=== PATIENT | female | born 1990 | race Caucasian/White ===

== ENCOUNTER 2019-07-28 19:28 | Outpatient (REF) | payer SELFPAY ==
[2019-07-28 19:55] LABS: Basophils % 0.3 %; Eosinophils # 0.1 10^3/uL (0.0-0.8); Eosinophils % 2.4 %; Hematocrit 35.8 % (37.0-47.0); Hemoglobin 10.7 g/dL (11.5-15.3); Lymphocytes % 50.4 %; Mean Corpuscular HGB Conc 29.9 g/dL (30.0-36.0); Mean Corpuscular Hemoglobin 25.7 pg (28.0-34.0); Mean Corpuscular Volume 86.1 fL (81-99); Mean Platelet Volume 14.2 fL (7.4-10.4); Monocytes # 0.5 10^3/uL (0.2-0.9); Monocytes % 7.9 %; Neutrophils # 2.3 10^3/uL (1.8-7.7); Neutrophils % 38.8 %; Nucleated Red Blood Cells % 0 %; Platelet Count 173 10^3/cmm (130-400); Red Blood Count 4.16 10^6/uL (4.1-5.3); Red Cell Distribution Width 15.8 % (12.1-15.1); White Blood Count 5.9 10^3/uL (4.0-10.0)
[2019-07-28 20:23] LABS: Alanine Aminotransferase 15 U/L (0-33); Albumin Level 4.6 g/dL (3.5-5.2); Alkaline Phosphatase 111 IU/L (35-105); Anion Gap 16.5 (5-19); Aspartate Amino Transferase 19 U/L (0-32); Blood Urea Nitrogen 12 mg/dL (6-20); Carbon Dioxide 25 mmol/L (22-29); Chloride 102 mmol/L (98-107); Free T4 Free Thyroxine 1.64 ng/dL (0.82-1.77); Globulin 2.9 g/dL (1.3-4.6); Glucose 71 mg/dL (74-109); Potassium 3.5 mmol/L (3.5-5.1); Sodium 140 mmol/L (136-145); Thyroid Stimulating Hormone 2.18 uIU/mL (0.27-4.20); Total Bilirubin 0.3 mg/dL (0.15-1.2); Total Protein 7.5 g/dL (6.6-8.7)
== END 2019-07-28 19:29 | disposition home or self-care (01) ==
LOC: LAB 19:28
PROVIDERS: Visit Provider Orthopaedic Surgery Foot and Ankle Surgery
DX: Z01.89 Encounter for other specified special examinations (principal)
CPT/HCPCS: 80053; 84439; 84443; 85025

== ENCOUNTER 2019-09-27 23:18 | Emergency (ER) | payer SELFPAY ==
[2019-09-27 23:20] VITALS: BP 122/103; PULSE 112; RESP 22; TEMP 36.9; O2SAT 100; BMI 33.4
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
[2019-09-27] MEDS: LORazepam 2 mg/mL INJ 1 mL IVP (23:41)
[2019-09-28 01:41] VITALS: BP 129/66; PULSE 102; RESP 16; O2SAT 96
== END 2019-09-28 01:43 | disposition home or self-care (01) ==
PROVIDERS: Emergency Provider Emergency Medicine
DX: G40.409 Other generalized epilepsy and epileptic syndromes, not intractable, without status epilepticus (principal); F17.200 Nicotine dependence, unspecified, uncomplicated
CPT/HCPCS: 12345; 96365; 96366; 96375; 99283; 99284; J1953; J2060

== ENCOUNTER 2019-11-29 10:39 | Emergency (ER) | payer SELFPAY ==
[2019-11-29 10:54] VITALS: BP 154/91; PULSE 108; RESP 16; TEMP 37; O2SAT 99; BMI 36.0
--- NOTE | 2019-11-29 11:17 | W.ED.GENADLT ---
HPI - General Adult General: Chief complaint: General Medical Stated complaint: SEIZURES/NEEDS REFERRAL/ MEDS CHANGE Time Seen by Provider: 11/29/19 10:59 Source: patient Mode of arrival: ambulatory History of Present Illness: HPI narrative: needing referral to neurology for existing seizure condition Review of Systems General: Reports: 10 or more systems reviewed and unremarkable except in HPI and below PFSH ED PFSH: Social History Smoking and tobacco status: current every day smoker Physical Exam Const: COMMON NORMALS: no apparent distress, oriented x3, no limitations and alert GENERAL APPEARANCE: cooperative and comfortable ORIENTATION/CONSCIOUSNESS: Yes awake, Yes oriented to person, Yes oriented to place and Yes oriented to time HENMT: COMMON NORMALS: normocephalic, head/scalp atraumatic, external ears normal, EAC's normal, TM's normal bilaterally and external nose normal HEAD & SCALP: normal to inspection, normocephalic and atraumatic FACE & SINUS: normal facial exam, sinuses nontender and face symmetric NOSE: external nose normal, nares normal and no nasal discharge EXTERNAL EAR: Yes external ears normal EXTERNAL AUDITORY CANAL: EAC's normal TYMPANIC MEMBRANE: TM's normal bilaterally MOUTH: oral and palatal mucosa normal, lip normal and tongue normal THROAT: posterior oropharynx normal, tonsils normal and uvula midline Eye: COMMON NORMALS: PERRL, EOMs intact bilaterally and conjunctivae normal GENERAL EYE: normal appearance of both eyes and normal light reflex EYELID: eyelids normal CONJUNCTIVA: Yes conjunctivae normal PUPIL: Yes PERRL EOM: Yes EOM abnormal DIRECT OPHTHALMOSCOPY: Yes normal light reflex Neck/C-Spine: COMMON NORMALS: full ROM, no lymphadenopathy, supple, no meningeal signs, no JVD and thyroid normal GENERAL: Yes normal visual inspection THYROID: thyroid normal CERVICAL SPINE: Yes cervical ROM normal and Yes normal cervical lordosis Lymph: LYMPHATIC: no lymphadenopathy noted Chest: COMMONS NORMALS: inspection of chest normal and palpation of chest normal Resp: COMMON NORMALS: normal respiratory effort, no retractions and clear to auscultation bilaterally AUSCULTATION: clear to auscultation bilaterally Cardio: COMMON NORMALS: no JVD, regular rate, regular rhythm, S1 normal heart sound, S2 normal heart sound, no gallops, no clicks, no murmurs, no rub and peripheral pulses 2+ throughout RATE: regular rate RHYTHM: regular rhythm HEART SOUNDS: S1 normal and S2 normal PERIPHERAL PULSES: pulses 2+ throughout GI: COMMON NORMALS: normal to inspection, nondistended, normoactive bowel sounds, soft to palpation, non-tender and no masses PALPATION: Yes soft : COMMON NORMALS: Yes no CVA tenderness and Yes external appearance normal BLADDER/KIDNEY EXAM: Yes no CVA tenderness Back/Pelvis: COMMON NORMALS: no CVA tenderness, thoracic and lumbar spine normal to inspection, no thoracic nor lumbar tenderness and thoraco-lumbar ROM normal Extremity: COMMON NORMALS: normal to inspection, full ROM, normal capillary refill, no joint enlargement, no clubbing, cyanosis or edema, no calf tenderness and no pedal edema GENERAL: Yes normal exam except as noted Neuro: COMMON NORMALS: oriented x3, moves all extremities, no focal motor deficits, no sensory deficits noted and gait normal SENSORIUM/ORIENTATION: Yes alert, Yes oriented to person, Yes oriented to place and Yes oriented to time MENINGEAL SIGNS: Yes no meningeal signs Psych: COMMON NORMALS: mental status grossly normal, thought process normal, cooperative, affect normal, speech normal and activity/motor behavior normal SPEECH: Yes normal speech THOUGHT PROCESS: normal thought process Skin: COMMON NORMALS: no rashes or lesions noted, no wounds and skin turgor normal GENERAL SKIN EXAM: no rashes or lesions noted and turgor normal Course ED course: Pt needs medications refilled for seizure disorder and referral to neurology. Will oblige and DC with consult set up per Associate Store Director. Vital Signs: Vital signs: Vital Signs Temperature 98.6 F 11/29/19 10:54 Pulse Rate 108 H 11/29/19 10:54 Respiratory Rate 16 11/29/19 10:54 Blood Pressure 154/91 11/29/19 10:54 Pulse Oximetry 99 11/29/19 10:54 Discharge Plan Discharge Patient Disposition: Home, Self-Care Clinical Impression: Seizure disorder Condition: Stable Prescriptions: New Keppra 500 mg tablet 500 mg PO BID Qty: 90 RF: 0 No Action Keppra 500 mg tablet 500 mg PO Q12H Qty: 60 RF: 0 Discharge Diet: Usual diet Discharge Activity: Resume usual activity Activity Restrictions/Additional Instructions: Follow up with neurology; script filled at [facility] Coding Level of Care Code ED Development Geologist for Chg Fwd Exam Comprehensive
[2019-11-29 11:38] VITALS: BP 155/87; PULSE 107; RESP 16; O2SAT 98
--- NOTE | 2019-11-30 14:51 | DCPLANNER ---
progressive care manager had message to schedule a follow up appointment for patient with Dr. Dill. progressive care manager called the office of , gave clinic patients information, was told that patients information would be printed and reviewed. Clinic will call patient with appointment information.
--- NOTE | 2019-12-02 09:42 | DCPLANNER ---
Patient has a follow up appointment scheduled for , December 08, 2019 at 10:15 with Joseph Cristobal. Clinic will call patient with appointment information.
--- NOTE | 2020-01-05 14:15 | DCPLANNER ---
Patient did not attend appointment scheduled for 12.08.[address] Dill.
== END 2019-11-29 12:11 | disposition home or self-care (01) ==
LOC: ER 11:51
PROVIDERS: Emergency Provider Nurse Practitioner Family
DX: G40.909 Epilepsy, unspecified, not intractable, without status epilepticus (principal); F17.210 Nicotine dependence, cigarettes, uncomplicated
CPT/HCPCS: 12345; 99281; 99282

== ENCOUNTER 2020-01-16 14:25 | Emergency (ER) | payer SELFPAY ==
[2020-01-16 14:28] VITALS: BP 153/93; PULSE 110; RESP 18; TEMP 36.7; O2SAT 99; BMI 34.9
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
== END 2020-01-16 16:41 | disposition home or self-care (01) ==
PROVIDERS: Emergency Provider Family Medicine
DX: S51.812A Laceration without foreign body of left forearm, initial encounter (principal); W25.XXXA Contact with sharp glass, initial encounter; G35 Multiple sclerosis; F17.210 Nicotine dependence, cigarettes, uncomplicated
CPT/HCPCS: 12002; 12345; 99281; 99282; J2001

== ENCOUNTER → 2020-04-13 15:28 | Outpatient (BNVA) | payer OTHER, SELFPAY | PROVIDERS: Visit Provider Nurse Practitioner | DX: Z20.828 Contact with and (suspected) exposure to other viral communicable diseases (principal) | CPT/HCPCS: 87635 ==

== ENCOUNTER 2020-08-05 16:15 | Emergency (ER) | payer SELFPAY ==
[2020-08-05 16:36] VITALS: BP 132/86; PULSE 101; RESP 14; TEMP 36.9; O2SAT 99; BMI 35.4
--- NOTE | 2020-08-05 17:06 | XRR_ITS ---
PROCEDURE INFORMATION: Exam: XR Left Knee Exam date and time: 08/05/2020 5:18 PM Age: 30 years old Clinical indication: Pain; Knee; Left; Additional info: Pain, pain with bending knee TECHNIQUE: Imaging protocol: XR Left knee. Views: 3 views. COMPARISON: CR Knee 3 views, LEFT* [id number] 12/05/2016 9:08 AM FINDINGS: Bones/joints: There is no knee joint effusion. The joint spaces are maintained. There is no intra-articular body. No acute fracture or dislocation. No chondrocalcinosis. Soft tissues: There is no foreign body. XR/XR knee LT 3V* [id number] IMPRESSION: No acute bony abnormality.
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
== END 2020-08-05 17:54 | disposition home or self-care (01) ==
PROVIDERS: Emergency Provider Physician Assistant
DX: M25.562 Pain in left knee (principal); G35 Multiple sclerosis; F17.210 Nicotine dependence, cigarettes, uncomplicated
CPT/HCPCS: 12345; 73562; 99281; 99282; E0114

== ENCOUNTER → 2022-12-26 14:24 | Outpatient (BNVA) | payer MEDICAID, SELFPAY | PROVIDERS: Visit Provider Nurse Practitioner | DX: F43.12 Post-traumatic stress disorder, chronic (principal); F11.21 Opioid dependence, in remission; F15.21 Other stimulant dependence, in remission; F41.1 Generalized anxiety disorder; F33.0 Major depressive disorder, recurrent, mild; F17.210 Nicotine dependence, cigarettes, uncomplicated; F12.90 Cannabis use, unspecified, uncomplicated; Z79.899 Other long term (current) drug therapy | CPT/HCPCS: 80061; 83036 ==

== ENCOUNTER → 2023-03-29 15:40 | Outpatient (BNVA) | payer MEDICAID, SELFPAY | PROVIDERS: Visit Provider Emergency Medicine | DX: R51.9 Headache, unspecified (principal); Z20.822 Contact with and (suspected) exposure to COVID-19 | CPT/HCPCS: 87426 ==

== ENCOUNTER 2023-05-16 18:32 | Emergency (ER) | payer SELFPAY ==
[2023-05-16 18:41] VITALS: BP 132/93; PULSE 103; RESP 18; TEMP 36.7; O2SAT 98; BMI 45.6
[2023-05-16 18:54] LABS: Basophils % 0.4 %; Eosinophils # 0.3 10^3/uL (0.0-0.8); Eosinophils % 2.5 %; Hematocrit 39.9 % (36-47); Lymphocytes # 3.4 10^3/uL (0.8-4.8); Lymphocytes % 31.8 %; Mean Corpuscular HGB Conc 32.1 g/dL (30-55); Mean Corpuscular Hemoglobin 28.9 pg (27-33); Mean Corpuscular Volume 90.1 fl (85-98); Mean Platelet Volume 12.3 fL (7.4-10.4); Monocytes # 0.6 10^3/uL (0.2-0.9); Monocytes % 5.8 %; Neutrophils # 6.27 10^3/uL (1.8-7.7); Neutrophils % 59.3 %; Nucleated Red Blood Cells % 0 %; Platelet Count 227 10^3/cmm (157-399); Red Blood Count 4.43 10^6/uL (3.85-5.65); Red Cell Distribution Width 13.4 % (12.1-15.1); White Blood Count 10.56 10^3/uL (3.29-11.43)
--- NOTE | 2023-05-16 19:02 | ED_ITS ---
HPI - Female Genitourinary General: Chief complaint: Urogenital-Female Stated complaint: right abdomen infection Time Seen by Provider: 05/16/23 18:39 History of Present Illness: 32-year-old female complaining of pain to the skin of her right lower quadrant of her belly. She has tried powders and ointments without any improvement. No fever. No vomiting. She is very uncomfortable. Associated symptoms: Deny abdominal pain, headache(s) or nausea Review of Systems Const: Denies: fever(s), chills or body aches Eyes: Denies: change in vision Card: Denies: chest pain or palpitations Resp: Denies: dyspnea, productive cough, non-productive cough or wheezing GI: Denies: abdominal pain, nausea, vomiting, diarrhea or hematochezia : Denies: difficulty voiding Skin/Breast: Reports: rash, erythema and skin pain Neuro: Denies: headache(s), weakness in extremities, dizziness or confusion PFSH ED PFSH: Medical History Cannabis use disorder Chronic post-traumatic stress disorder Generalized anxiety disorder Major depressive disorder, recurrent, mild Methamphetamine use disorder, severe, in early remission Multiple sclerosis Nicotine dependence, cigarettes, uncomplicated On combination antipsychotic drug therapy Opioid dependence, in remission Psychiatric care Surgical History History of cholecystectomy Previous section Social History Smoking and tobacco/nicotine status: current every day tobacco/nicotine user Current gender identity: Female Physical Exam Const: COMMON NORMALS: no acute distress GENERAL APPEARANCE: cooperative; not ill appearing and not frail appearing HENMT: COMMON NORMALS: normocephalic, atraumatic and Normal external nose present HEAD & SCALP: normocephalic and atraumatic FACE & SINUS: normal facial exam and face symmetric NOSE: Normal external nose present Eye: COMMON NORMALS: Equal, round and reactive pupils present and EOMs intact bilaterally PUPIL: Yes Equal, round and reactive pupils present Neck/C-Spine: GENERAL: Yes trachea midline Chest: CHEST: Yes Symmetrical chest wall rise Resp: COMMON NORMALS: normal respiratory effort, No retractions, No use of accessory muscles and clear to auscultation bilaterally AUSCULTATION: clear to auscultation bilaterally Cardio: COMMON NORMALS: regular rate and regular rhythm RATE: regular rate RHYTHM: regular rhythm GI: COMMON NORMALS: Normal to inspection, nondistended, normoactive bowel sounds present Extremity: COMMON NORMALS: no pedal edema Neuro: YESSY COMA SCALE: document GCS findings [place] coma scale eye opening: Spontaneous Yessy coma scale verbal response: Orientated Yessy coma scale motor response: Obey commands Yessy coma scale total score: 15 SENSORY EXAM: Yes extremities (intact) Psych: COMMON NORMALS: speech normal SPEECH: Yes normal speech Skin: NARRATIVE SKIN EXAM: Right lower quadrant intertriginous candidiasis present. Very beefy elsa thematous area. No streaking. No significant drainage currently. Course Vital Signs: Vital signs: Vital Signs Temperature 98.1 F 05/16/23 18:41 Pulse Rate 103 H 05/16/23 18:41 Respiratory Rate 18 05/16/23 18:41 Blood Pressure 132/93 05/16/23 18:41 Pulse Oximetry 98 05/16/23 18:41 Oxygen Delivery Me thod Room Air 05/16/23 18:41 MDM - Female Medical Decision Making Patient prescribed oral Diflucan, topical nystatin, and Bactrim for potential bacterial superinfection. She will take as directed. Return for worsening. Remaining laboratory is canceled. Lab Data 05/16/23 18:49 05/16/23 18:49 Laboratory Results WBC 10.56 10^3/uL (3.29-11.43) 05/16/23 18:49 RBC 4.43 10^6/uL (3.85-5.65) 05/16/23 18:49 Hgb 12.80 g/dL (11.27-16.99) 05/16/23 18:49 Hct 39.9 % (36-47) 05/16/23 18:49 MCV 90.1 fl (85-98) 05/16/23 18:49 MCH 28.9 pg (27-33) 05/16/23 18:49 MCHC 32.1 g/dL (30-55) 05/16/23 18:49 RDW 13.4 % (12.1-15.1) 05/16/23 18:49 Plt Count 227 10^3/cmm (157-399) 05/16/23 18:49 MPV 12.3 fL (7.4-10.4) H 05/16/23 18:49 Neut % (Auto) 59.3 % 05/16/23 18:49 Lymph % (Auto) 31.8 % 05/16/23 18:49 [place] % (Auto) 5.8 % 05/16/23 18:49 Eos % (Auto) 2.5 % 05/16/23 18:49 Baso % (Auto) 0.4 % 05/16/23 18:49 Neut # (Auto) 6.27 10^3/uL (1.8-7.7) 05/16/23 18:49 Lymph # (Auto) 3.4 10^3/uL (0.8-4.8) 05/16/23 18:49 [place] # (Auto) 0.6 10^3/uL (0.2-0.9) 05/16/23 18:49 Eos # (Auto) 0.3 10^3/uL (0.0-0.8) 05/16/23 18:49 Baso # (Auto) 0.0 10^3/uL (0.0-0.1) 05/16/23 18:49 Nucleated RBC % (auto) 0 % 05/16/23 18:49 Nucleated RBCs # 0.0 /100WBC 05/16/23 18:49 HCG, Qual Negative (Negative) 05/16/23 18:49 No radiology studies performed this visit Discharge Plan Discharge Patient Disposition: Home Clinical Impression: Candidiasis, intertriginous Condition: Stable Prescriptions: New Bactrim DS 800-160 mg tablet 1 tab PO DAILY 5 Days Qty: 10 0RF fluconazole 150 mg tablet 150 mg PO Q3D Qty: 3 0RF hydrocodone-acetaminophen 5-325 mg tablet 1 tab PO Q8H PRN (Reason: pain) Qty: 7 0RF nystatin 100,000 unit/gram powder 1 applic topical BID Qty: 30 0RF No Action fluticasone propionate [Flonase Allergy Relief] 50 mcg/actuation spray,suspension 2 spray intranasal DAILY Qty: 16 0RF Rx Instructions: administer into each nostril sertraline [Zoloft] 100 mg tablet 100 mg PO DAILY Qty: 30 2RF buspirone 10 mg tablet 10 mg PO BID Qty: 60 2RF fluticasone propionate [Flonase Allergy Relief] 50 mcg/actuation spray,suspension 2 spray intranasal DAILY Qty: 16 0RF Rx Instructions: administer into each nostril cetirizine [Zyrtec] 10 mg tablet 10 mg PO DAILY Qty: 30 0RF ibuprofen 600 mg tablet 600 mg PO Q8H PRN (Reason: pain) Qty: 60 0RF quetiapine [Seroquel XR] 150 mg tablet extended release 24 hr 150 mg PO DAILY Qty: 30 1RF Discharge Orders: Discharge ED (Routine); Ordered 05/16/23 Ordered By: Sam Murillo Patient Instructions: Skin Yeast Infection (ED), Opioid Safety, Pain Management Activity Restrictions/Additional Instructions: Medication as directed. Return for fever, vomiting liquids or medications, other concerning symptoms. Coding Level of Care Code ED [employer] for [place] [facility]
[2023-05-16 19:05] LABS: HCG, Serum Qual Negative (Negative)
[2023-05-16] MEDS: sulfamethoxazole-trimeth DS 160-800 mg Tablet 1 TAB PO (19:11)
[2023-05-16] MEDS: fluconazole 100 mg Tablet 150 MG PO (19:11)
[2023-05-16 19:17] LABS: Alanine Aminotransferase 23 U/L (0-33); Albumin Level 4.1 g/dL (3.5-5.2); Alkaline Phosphatase 123 U/L (35-105); Anion Gap 14.5 (5-19); Aspartate Amino Transferase 19 U/L (0-32); Blood Urea Nitrogen 7 mg/dL (6-20); C Reactive Protein 34.8 mg/L (0.0-4.9); Calcium 9.1 mg/dL (8.5-10.5); Carbon Dioxide 22 mmol/L (22-29); Chloride 105 mmol/L (98-107); Glucose 97 mg/dL (65-115); Lipase 21 U/L (13-60); Osmolality Calculated 284 mOsm/kg (285-295); Potassium 3.5 mmol/L (3.5-5.1); Sodium 138 mmol/L (136-145); Total Bilirubin 0.5 mg/dL (0.15-1.2); Total Protein 7.1 g/dL (6.6-8.7)
== END 2023-05-16 19:20 | disposition home or self-care (01) ==
PROVIDERS: Emergency Provider Emergency Medicine
DX: B37.2 Candidiasis of skin and nail (principal); G35 Multiple sclerosis; Z72.0 Tobacco use
CPT/HCPCS: 36415; 80053; 83690; 84703; 85025; 86140; 99283

== ENCOUNTER → 2024-01-08 09:09 | Outpatient (BNVA) | payer MEDICAID, SELFPAY | PROVIDERS: Visit Provider Specialist | DX: R29.90 Unspecified symptoms and signs involving the nervous system (principal); G37.9 Demyelinating disease of central nervous system, unspecified; R20.0 Anesthesia of skin; R20.2 Paresthesia of skin; F15.21 Other stimulant dependence, in remission; F41.1 Generalized anxiety disorder | CPT/HCPCS: 99204; 99205 ==

== ENCOUNTER 2024-01-15 15:24 | Outpatient (CLI) | payer MEDICAID, SELFPAY | END 2024-01-15 15:25 | disposition home or self-care (01) | LOC: LAB 15:25 | PROVIDERS: Visit Provider Specialist | DX: G37.9 Demyelinating disease of central nervous system, unspecified (principal); R20.0 Anesthesia of skin; R20.2 Paresthesia of skin; F41.1 Generalized anxiety disorder | CPT/HCPCS: 83516; 84439 ==

== ENCOUNTER 2024-02-16 08:14 | Outpatient (CLI) | payer MEDICAID, SELFPAY | END 2024-02-16 08:15 | disposition home or self-care (01) | LOC: RAD 08:15 | PROVIDERS: PCP Nurse Practitioner Occupational Health; Visit Provider Specialist | DX: R20.0 Anesthesia of skin; R20.2 Paresthesia of skin | CPT/HCPCS: 95910 ==

== ENCOUNTER 2024-02-16 08:15 | Outpatient (CLI) | payer MEDICAID, SELFPAY ==
--- NOTE | 2024-02-16 08:00 | MR_ITS ---
WS: [id number] MRI CERVICAL SPINE NONCONTRAST HISTORY: G37.9 - Demyelinating disease of central nervous system, ... COMPARISON: None available. Technique: Multiplanar, multisequence noncontrast imaging of the cervical spine. Study terminated early and without IV contrast due to patient's request. Mild straightening of the normal cervical lordosis. No atrophy or signal abnormality within the cord. There are a few very subtle areas of variable signal within the cord on the STIR sequence but this i s probably artifact. No corresponding abnormality definitely seen on the sagittal T2 sequence or on t he axial imaging. Signal within the cervical cord is normal. Visualized posterior fossa is unremarkable. Craniocervical junction, C1 and C2 relationship, odontoid process and soft tissues are normal. C2-C3: Normal. C3-C4: Normal. C4-C5: Slight disc bulging. No stenosis. C5-C6: Mild disc bulging. No stenosis. C6-C7: Mild disc bulging with a very tiny central disc protrusion. Mild effacement of ventral CSF. C7-T1: Normal. Paraspinal soft tissue are normal. MR/MR cervical spin wo con* [id number] IMPRESSION: 1. Study terminated early at the patient's request and without IV contrast. No definite signal abnormalities are noted within the cervical cord taking into c onsideration motion artifact. 2. No cord atrophy or enlargement. 3. Small central disc protrusion at C6-7.
--- NOTE | 2024-02-16 08:45 | MR_ITS ---
WS: [id number] MRI BRAIN WITHOUT CONTRAST HISTORY: G37.9 - Demyelinating disease of central nervous system, ... COMPARISON: None available. TECHNIQUE: Diffusion imaging, multiplanar T1, T2 and FLAIR imaging obtained. Study was performed without contrast due to back pain and at patient's request to terminate early. Significant motion artifact on the sagittal FLAIR sequence. No obvious demyelinating disease is ident ified in a pericallosal distribution or in the posterior fossa. Study is limited. No diffusion abnor malities and no hemorrhage. No remote or acute infarcts are volume loss. Ventricles and extra-axial spaces are normal. No inferior displacement of cerebellar tonsils. The sella turcica and pituitary gland are unremarkabl e. Dural venous sinuses and [place] demonstrate no abnormality on this unenhanced studies. Paranasal sinuses: Clear. Mastoid air cells: Small amount of fluid in the mastoid air cells bilaterally. Calvarium and scalp: Intact. MR/MR head wo con* [id number] IMPRESSION: 1. Study terminated early and without IV contrast at the patient's request. 2. No pericallosal demyelinating lesions are identified on this unenhanced exa m. 3. No prior hemorrhage or infarct. No volume loss or atrophy.
== END 2024-02-16 08:16 | disposition home or self-care (01) ==
LOC: RAD 08:15
PROVIDERS: PCP Nurse Practitioner Occupational Health; Visit Provider Specialist
DX: G37.9 Demyelinating disease of central nervous system, unspecified (principal); M50.322 Other cervical disc degeneration at C5-C6 level
CPT/HCPCS: 70551; 72141

== ENCOUNTER → 2024-04-15 13:17 | Outpatient (BNVA) | payer MEDICAID, SELFPAY | PROVIDERS: PCP Nurse Practitioner Occupational Health; Visit Provider Specialist | DX: R29.90 Unspecified symptoms and signs involving the nervous system (principal); G37.9 Demyelinating disease of central nervous system, unspecified; R20.0 Anesthesia of skin; R20.2 Paresthesia of skin; F15.21 Other stimulant dependence, in remission; R03.0 Elevated blood-pressure reading, without diagnosis of hypertension | CPT/HCPCS: 99214 ==

== ENCOUNTER → 2024-11-28 11:50 | Outpatient (BNVA) | payer BC, SELFPAY | PROVIDERS: PCP Nurse Practitioner; Visit Provider Nurse Practitioner | DX: F33.2 Major depressive disorder, recurrent severe without psychotic features (principal); Z79.899 Other long term (current) drug therapy | CPT/HCPCS: 80053; 80061; 84443; 85025 ==

== ENCOUNTER → 2025-04-17 10:58 | Outpatient (BNVA) | payer BC, SELFPAY | PROVIDERS: PCP Nurse Practitioner; Visit Provider Nurse Practitioner | DX: S86.911A Strain of unspecified muscle(s) and tendon(s) at lower leg level, right leg, initial encounter (principal); X58.XXXA Exposure to other specified factors, initial encounter | CPT/HCPCS: 73562 ==

== ENCOUNTER → 2025-05-08 09:46 | Outpatient (BNVA) | payer BC, MEDICAID, SELFPAY | PROVIDERS: PCP Nurse Practitioner; Visit Provider Specialist | DX: M25.561 Pain in right knee (principal); G89.29 Other chronic pain; E66.9 Obesity, unspecified | CPT/HCPCS: 73560; 73565 ==

== ENCOUNTER 2025-05-29 13:48 | Outpatient (CLI) | payer BC, MEDICAID, SELFPAY ==
--- NOTE | 2025-05-29 14:30 | MR_ITS ---
WS: [id number] MRI RIGHT KNEE NONCONTRAST TECHNIQUE: Axial PD, coronal PD fat sat, coronal PD, sagittal PD, and sagittal PD fat-sat images obtained. CLINICAL INFORMATION: right knee pain COMPARISON: None. FINDINGS: Distal quadriceps and patella tendons are intact. Normal ACL and PCL. Small suprapatellar effusion. Mild prepatellar and infrapatellar soft tissue edema. 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 Medial and lateral patellar retinaculum appear intact. Medial and lateral collateral ligaments appear intact. Normal popliteus. Normal popliteal fossa. Normal bone marrow signal in the femoral condyles and tibial plateau. Normal fibula head. Suspected meniscal root tear with blunting of the medial meniscus. Lateral meniscus is intact. MR/MR knee RT wo con* [id number] IMPRESSION: 1. ACL and PCL are intact. 2. Suspected meniscal root tear with blunting of the medial meniscus at the me niscal root. Normal lateral meniscus. 3. 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 Recommend correlation for patellar instability. Medial and lateral patellar retinaculum appear intact. 4. Small joint effusion. 5. No other acute findings Outbridge grading: grade IV: full-thickness cartilage loss with underlying bone reactive changes
== END 2025-05-29 13:49 | disposition home or self-care (01) ==
LOC: RAD 13:50
PROVIDERS: PCP Nurse Practitioner; Visit Provider Specialist
DX: M25.561 Pain in right knee (principal); S83.231A Complex tear of medial meniscus, current injury, right knee, initial encounter; X58.XXXA Exposure to other specified factors, initial encounter; M22.41 Chondromalacia patellae, right knee; M25.461 Effusion, right knee; M70.40 Prepatellar bursitis, unspecified knee
CPT/HCPCS: 73721